=== PATIENT | female | born 1975 | race Caucasian/White ===

== ENCOUNTER → 2017-03-29 | Outpatient (CLI) | payer OTHER | END | disposition home or self-care (01) | LOC: MAMMO 12:56 | DX: N64.4 Mastodynia (principal) | CPT/HCPCS: 76641; 77065 ==

== ENCOUNTER 2017-10-21 13:36 | Emergency (ER) | payer OTHER ==
[~2017-10-21] VITALS: Ht 154.9 cm; Wt 47.6 kg
[2017-10-21 14:28] VITALS: BP 125/81
[2017-10-21] MEDS ORDERED: LIDOCAINE WITH 8.4% SOD BICARB 3 ML DISP.SYRIN. INJ ONE (14:45)
[2017-10-21] MEDS ORDERED: LIDOCAINE WITH 8.4% SOD BICARB 3 ML DISP.SYRIN. ONE (14:45)
--- NOTE | 2017-10-21 14:48 | PHYS DOC ---
Past Medical History Past Medical History: GERD Past Surgical History: Tonsillectomy Additional Past Surgical Histo: LAPROSCOPIC EXPLORATOMY, E.G. Additional Information: 1/2 PACK PER DAY Alcohol Use: Occasionally Drug Use: None Adult General Chief Complaint Chief Complaint: LACERATION/AVULSION [facility] HPI Patient is a 42 year old F who presents with laceration to the distal end of the left index finger. Patient reports she was cutting vegetables and caught her finger. Bleeding controlled. Unknown tetanus status. Review of Systems Review of Systems Constitutional: Denies fever or chills [] Cardiovascular: No additional information not addressed in HPI [] Musculoskeletal: Denies joint pain [] Integument: laceration to the distal end of the left index finger Neurologic: Denies focal weakness or sensory changes [] All other systems were reviewed and found to be within normal limits, except as documented in this note. Current Medications Current Medications Current Medications Medications (Trade) Dose Ordered Sig/Teressa Start Time Stop Time Status Last Admin Dose Admin Lidocaine/Sodium Bicarbonate (Buffered Lidocaine 1%) 3 ml STK-MED ONCE 10/21/17 14:45 10/21/17 14:46 DC Allergies Allergies Allergies Coded Allergies Type Severity Reaction Last Updated Verified No Known Drug Allergies 10/21/17 No Physical Exam Physical Exam Constitutional: Well developed, well nourished, no acute distress, non-toxic appearance. [] HENT: Normocephalic, atraumatic Eyes: PERRLA, EOMI, conjunctiva normal, no discharge. [] Neck: Normal range of motion, no tenderness, supple, no stridor. [] Skin: Warm, dry, 1.5cm distal left index finger laceration, no nail involvement Extremities: tenderness present, ROM intact Neurologic: Alert and oriented X 3, normal motor function, normal sensory function, no focal deficits noted. [] Psychologic: Affect normal, judgement normal, mood normal. [] Current Patient Data Vital Signs Vital Signs Date Time Temp Pulse Resp B/P (MAP) Pulse Ox O2 Delivery O2 Flow Rate FiO2 10/21/17 14:28 98.6 66 20 125/81 (96) Room Air 99.0 98.6 EKG EKG [] Radiology/Procedures Radiology/Procedures [] Course & Med Decision Making Course & Med Decision Making Pertinent Labs and Imaging studies reviewed. (See chart for details) Offered tetanus vaccine, patient declined Plan: Sutures out in 7 days, wound care instructions, follow-up with PCP, return precautions reviewed Flavio Disclaimer Flavio Disclaimer This electronic medical record was generated, in whole or in part, using a voice recognition dictation system. Laceration/Wound Repair Laceration/Wound Repair : Wound Location: upper extremity (left index finger, distal) Wound Length (cm): 1 Wound Explored: clean Betadine Prep?: No Anesthesia: 1% Lidocaine Volume Anesthetic (ccs): 1 Suture Size/Type: 5:0 Number of Sutures: 3 Layer Closure?: No Sterile Dressing Applied?: Yes Splint Applied?: No Sling Applied?: No Progress Patient tolerated without difficulty Departure Departure Impression: Primary Impression: Laceration of finger Disposition: 01 HOME, SELF-CARE Condition: IMPROVED Referrals: DORIAN BO MD (PCP) Patient Instructions: Laceration Care, Adult Problem Qualifiers Primary Impression: Laceration of finger Encounter type: initial encounter Finger: index finger Damage to nail status: without damage Foreign body presence: without foreign body Laterality: left Qualified Codes: S61.211A - Laceration without foreign body of left index finger without damage to nail, initial encounter AYLIN ATKINSON [employer] Oct 21, 2017 14:48
== END 2017-10-21 15:06 | disposition home or self-care (01) ==
LOC: ER 13:36
DX: S61.211A Laceration without foreign body of left index finger without damage to nail, initial encounter (principal); K21.9 Gastro-esophageal reflux disease without esophagitis; F17.200 Nicotine dependence, unspecified, uncomplicated; W23.0XXA Caught, crushed, jammed, or pinched between moving objects, initial encounter; Y93.89 Activity, other specified; Y92.89 Other specified places as the place of occurrence of the external cause; Y99.8 Other external cause status
CPT/HCPCS: 12001; 99283-25